=== PATIENT | female | born 1950 | race Caucasian/White ===

== ENCOUNTER 2018-09-28 07:12 | Outpatient (CLI) | payer OTHER | END 2018-09-28 07:26 | disposition home or self-care (01) | LOC: LAB 07:12 → EKG 07:12 → RAD 07:12 → LAB 07:26 | DX: Z01.810 Encounter for preprocedural cardiovascular examination (principal); Z01.811 Encounter for preprocedural respiratory examination ==

== ENCOUNTER 2018-09-28 08:12 | Inpatient (IN) | payer OTHER ==
[~2018-09-28] VITALS: Ht 157.5 cm; Wt 56.7 kg
[2018-10-10] MEDS ORDERED: NAMENDA5 MG PO (07:30)
[2018-10-10] MEDS ORDERED: COZAAR50 MG PO (07:30)
[2018-10-10] MEDS ORDERED: ASPIR 8181 MG PO (07:31)
[2018-10-10] MEDS ORDERED: [UNRECOGNIZED DRUG - OTHER] (07:31)
[2018-10-19] MEDS ORDERED: EXELON1 EAC1 (08:10)
== END 2018-10-22 09:36 | disposition home or self-care (01) | DRG 748 ==
LOC: SURG 10-10 07:00 → SURH 10-19 05:17 → O/R 10-19 05:17 → SURG 10-19 07:00 → OB/GYN 10-19 13:56 → SURH 10-20 09:08
PROVIDERS: ADMIT Specialist
PROC: 0JQC0ZZ Repair Pelvic Region Subcutaneous Tissue and Fascia, Open Approach (ICD-10-PCS; 2018-10-19)
PROC: 0JQC0ZZ Repair Pelvic Region Subcutaneous Tissue and Fascia, Open Approach (ICD-10-PCS; principal; 2018-10-19 08:45)
PROC: B030Y0Z Magnetic Resonance Imaging (MRI) of Brain using Other Contrast, Unenhanced and Enhanced (ICD-10-PCS; 2018-10-20)
PROC: B246ZZZ Ultrasonography of Right and Left Heart (ICD-10-PCS; 2018-10-20)
PROC: B345ZZZ Ultrasonography of Bilateral Common Carotid Arteries (ICD-10-PCS; 2018-10-20)
PROC: 4A033R1 Measurement of Arterial Saturation, Peripheral, Percutaneous Approach (ICD-10-PCS; 2018-10-20)
DX: N81.12 Cystocele, lateral (principal); G40.509 Epileptic seizures related to external causes, not intractable, without status epilepticus; N81.6 Rectocele; I10 Essential (primary) hypertension; G30.0 Alzheimer's disease with early onset; F02.80 Dementia in other diseases classified elsewhere, unspecified severity, without behavioral disturbance, psychotic disturbance, mood disturbance, and anxiety; R15.9 Full incontinence of feces; T42.0X5A Adverse effect of hydantoin derivatives, initial encounter; I08.1 Rheumatic disorders of both mitral and tricuspid valves
CPT/HCPCS: 70552

== ENCOUNTER → 2018-10-01 09:25 | Outpatient (CLI) | payer OTHER | END | disposition home or self-care (01) | LOC: LAB 09:25 | DX: Z01.812 Encounter for preprocedural laboratory examination (principal); D68.8 Other specified coagulation defects; N83.01 Follicular cyst of right ovary; E78.00 Pure hypercholesterolemia, unspecified; N39.0 Urinary tract infection, site not specified; D50.8 Other iron deficiency anemias ==